=== PATIENT | female | born 2005 | race Caucasian/White ===

== ENCOUNTER 2023-11-25 06:40 | Day surgery (SDC) | payer OTHER ==
[~2023-11-25 06:40] MED LIST: SODIUM CHLORIDE 0.9% 1,000 ML IV SCH
[2023-11-25] MEDS ORDERED: SODIUM CHLORIDE 0.9% 500 ML 500 ML IV ONE (06:59)
[2023-11-25 07:41] VITALS: RESP 16; TEMP 98.2
[2023-11-25 09:24] VITALS: BP 107/70; PULSE 65
--- NOTE | 2023-11-25 12:53 | P.EPPROC ---
- EP Procedure Note Electrophysiology Procedure Note: Diagnosis Recurrent syncope/presyncope Twelve-lead EKG shows sinus mechanism 56 beats a minute normal CT narrow QRS normal ST segments normal QT interval Tilt table test for protocol Baseline blood pressure 98/58 mmHg, Baseline heart rate 67 beats a minute Patient was tilted upright at an angle of 70 per protocol line she complained of dizziness. Immediate blood pressure was 140/66. His mercury pulse rate 73 beats a minute After about 8 minutes there was a gradual progressive decline in her blood pressure Lowest recorded blood pressure was 67/39 mmHg By [employer] the lowest blood pressure was 56 mmHg systolic Absence of sinus tachycardia prior to the drop in blood pressure Lowest heart rate recorded was 47 beats a minute She became presyncopal When she was laid supine her blood pressure went back to the mid 90s similar to her baseline Impression Normal twelve-lead EKG Orthostatic hypotension syndrome, gradual progressive decline in blood pressure This 18-year-old female did not display neurocardiogenic syncope on the tilt 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
== END 2023-11-25 09:30 | disposition home or self-care (01) ==
LOC: CATHEP 06:40
PROVIDERS: ATTEND Internal Medicine Clinical Cardiac Electrophysiology
DX: I95.1 Orthostatic hypotension (principal); Z82.49 Family history of ischemic heart disease and other diseases of the circulatory system; Z79.899 Other long term (current) drug therapy
CPT/HCPCS: 81025; 93660